=== PATIENT | female | born 1970 | race Caucasian/White ===

== ENCOUNTER 2021-09-25 00:14 | Day surgery (SDC) | payer BC, SELFPAY ==
[2021-09-14 10:48] VITALS: BMI 22.6
--- NOTE | 2021-09-25 10:55 | PM.HPGS ---
History of Present Illness History of Present Illness Consent: Risks, benefits, and alternatives have been discussed and questions answered. Patient agrees to proceed with procedure. Chief complaint: abdominal pain, melena Narrative: Virginie Fields is a 51 year old female who developed involuntary contractions in her upper torso.? She called her primary care provider who told her to start taking magnesium, 4000 mg per day.? The involuntary movements stopped, however she then developed severe abdominal cramping with diarrhea.? Within a day or 2 she began passing blood and has actually passed blood clots as well.? She was not having a fever, chills, but did have vomiting the 1st day or 2 after taking magnesium.? She stopped taking magnesium on the 4th day.? She still feels uncomfortable throughout her abdomen and is seeing some blood but much less. Review of Systems Review of Systems: All systems reviewed & are unremarkable except as noted in HPI and below PMFSH Past Medical History Medical History Allergies Family History Family History Father Alcoholism Heart disease Son Asthma Depression Daughter Cancer Mother Cerebrovascular accident Grandparent Heart disease Social History Social History Smoking status: Never smoker Alcohol intake: current Drinks per week: 1 Alcohol use details: social Substance use: never Substance use type: does not use Living arrangements: alone Spiritual care concerns: No Meds Home Medications and Allergies Home Medications Medication Instructions Recorded Confirmed Type bupropion HCl 100 mg tablet 150 mg PO DAILY 09/11/21 09/14/21 History conjugated estrogens 0.3 mg tablet 0.3 mg PO Q5-6M 09/11/21 09/14/21 History lisdexamfetamine 60 mg capsule 60 mg PO DAILY 09/11/21 09/14/21 History (Vyvanse) qgkxkmmnw-drvvprkwj-idyqfkbe-scop 1 - 2 tablet PO .q8 PRN cramping 09/11/21 09/14/21 Rx 16.2 mg-0.1037 mg-0.0194 mg tablet and loose stools #20 tabs () progesterone micronized 200 mg 200 mg PO QHS 09/11/21 09/14/21 History capsule testosterone 100 mg implant pellet 150 mg subcut .Q5-6 months 09/11/21 09/14/21 History Allergies Allergy/AdvReac Type Severity Reaction Status Date / Time shellfish derived Allergy Anaphylaxis Verified 09/14/21 11:07 Sulfa (Sulfonamide Allergy Anaphylaxis Verified 09/14/21 11:07 Antibiotics) Exam Resp: Auscultation: clear to auscultation bilaterally Cardio: Rate: regular rate Rhythm: regular rhythm GI: GI Palp: Yes Soft to palpation and No Tenderness to palpation present (GI) Assessment and Plan Assessment and plan (1) Blood in stool: Code(s): K92.1 - Melena Status: Acute Assessment and Plan: Colonoscopy with possible biopsy or polypectomy or cautery or injection of substances.
[2021-09-25] MEDS: LACTATED RINGERS 1,000 ML 150 ML IV CONT (11:40)
[2021-09-25 11:42] VITALS: BP 120/65; PULSE 45; RESP 18; TEMP 37.1; O2SAT 100; BMI 21.4
--- NOTE | 2021-09-25 11:48 | P.PNAN_ITS ---
Anes - Initial Pre Proc Eval Procedure: Operation Date: 09/25/21 12:30 Proposed Procedures p Colonoscopy - Brian Hobbs MD Date/Time: 09/25/21 11:48 Surgeon: Brian Hobbs MD Pre Op Diagnosis: abdominal pain, melena Patient Data Age: 51 Gender: F Height: 1.6 m Weight: 54.9 kg Last Vital Signs Temp 98.7 F 09/25/21 11:42 Pulse 45 L 09/25/21 11:42 Resp 18 09/25/21 11:42 BP 120/65 09/25/21 11:42 Pulse Ox 100 09/25/21 11:42 O2 Del Method Room Air 09/25/21 11:42 Allergies Allergy/AdvReac Type Severity Reaction Status Date / Time shellfish derived Allergy Anaphylaxis Verified 09/14/21 11:07 Sulfa (Sulfonamide Allergy Anaphylaxis Verified 09/14/21 11:07 Antibiotics) Home Medications Medication Instructions Recorded Confirmed Type bupropion HCl 100 mg tablet 150 mg PO DAILY 09/11/21 09/25/21 History conjugated estrogens 0.3 mg tablet 0.3 mg PO Q5-6M 09/11/21 09/25/21 History lisdexamfetamine 60 mg capsule 60 mg PO DAILY 09/11/21 09/25/21 History (Vyvanse) hrymnwlif-jdwqsinfk-zptxzsbg-scop 1 - 2 tablet PO .q8 PRN cramping 09/11/21 09/14/21 Rx 16.2 mg-0.1037 mg-0.0194 mg tablet and loose stools #20 tabs () progesterone micronized 200 mg 200 mg PO QHS 09/11/21 09/25/21 History capsule testosterone 100 mg implant pellet 150 mg subcut .Q5-6 months 09/11/21 09/25/21 History Patient hx anesthesia problems: none Family hx anesthesia problems: none Results Review: All pre-operative results and documents have been reviewed as part of the pre-operative evaluation. [facility] Past Medical History Medical History Allergies Family History Family History Father Alcoholism Heart disease Son Asthma Depression Daughter Cancer Mother Cerebrovascular accident Grandparent Heart disease Social History Social History Smoking status: Never smoker Alcohol intake: current Drinks per week: 1 Alcohol use details: social Substance use: never Substance use type: does not use Living arrangements: alone Spiritual care concerns: No Anes - Eval Final PreProcedure Day of Procedure 09/25/21 11:48 Patient weight: normal Heart: bradycardia Lungs: clear to auscultation Airway: Mallampati scale class II Neurological: alert and oriented Last oral intake: >/= 8 hours ASA classification: II Emergent: no Anesthetic plan: proceed Anesthesia type and monitoring: general GIVS and standard monitoring Results Review: All pre-operative results and documents have been reviewed as part of the pre- operative evaluation. Informed Consent: The patient's anesthetic plan and its attendant risks and benefits were discussed with the patient/family/POA. Questions were solicited and answers provided to the satisfaction of the patient/family/POA.
[2021-09-25 12:16] VITALS: BP 106/69; PULSE 73; RESP 18; O2SAT 100
[2021-09-25 12:26] VITALS: BP 103/71; PULSE 69; RESP 22; O2SAT 100
[2021-09-25 12:36] VITALS: BP 105/74; PULSE 65; RESP 20; O2SAT 100
== END 2021-09-25 12:50 | disposition home or self-care (01) ==
PROVIDERS: PCP Internal Medicine; Visit Provider Internal Medicine Gastroenterology
PROC: 0DJD8ZZ Inspection of Lower Intestinal Tract, Via Natural or Artificial Opening Endoscopic (ICD-10-PCS; CPT 45378; principal; 2021-09-25 12:30)
DX: K92.1 Melena (principal); K57.30 Diverticulosis of large intestine without perforation or abscess without bleeding; K62.1 Rectal polyp
CPT/HCPCS: 45380; 45381; 88305; J2704; J7120

== ENCOUNTER 2021-10-12 17:28 | Emergency (ER) | payer BC, SELFPAY ==
--- NOTE | ~2021-10-12 | CT_ITS ---
EXAMINATION: CT abdomen pelvis w con DATE: 10/12/2021 18:38 INDICATION: Abdominal pain with rectal bleeding TECHNIQUE: Computed tomography (CT) of the abdomen and pelvis was performed with 100 mL Omnipaque-350 intravenous contrast. Automated exposure control and iterative reconstruction technique were employe d. The dose-length product was 214.28 mGy-cm. COMPARISON: None FINDINGS: Visualized lower lungs are clear. Heart size is normal. No pericardial or pleural effusion. The later al breast implants. Liver, gallbladder, spleen, pancreas, bilateral adrenal glands are normal. Couple 2 mm smaller stones in the right kidney and one in the mid left kidney. No hydronephrosis. Normal ap pendix. Short segment of wall thickening at the rectosigmoid junction without significant surrounding inflammatory stranding which raises concern for malignancy. Moderate to large amount stool scattered throughout the more proximal colon. No dilated bowel to suggest obstruction. Bladder is normal. The uterus is not identified and has likely been surgically resected. No free intraperitoneal gas or flui d No pathologically enlarged abdominal or pelvic lymphadenopathy. Moderate thoracic and lumbar spondy losis. Normal variant L2 limbus vertebra with unfused apophyseal center at the anterosuperior are not ed margin of the vertebral body. IMPRESSION: 1. Short segment of wall thickening at the rectosigmoid junction which raises concern for colon cance r. Differential would diverticulitis or focal colitis. Recommend colonoscopy for further evaluation. 2. Nonobstructing nephrolithiasis. Reviewed, dictated and finalized at location [facility]. IMPRESSION: 1. Short segment of wall thickening at the rectosigmoid junction which raises c oncern for colon cancer. Differential would diverticulitis or focal colitis. Re commend colonoscopy for further evaluation. 2. Nonobstructing nephrolithiasis.
[2021-10-12 17:46] VITALS: BP 138/82; PULSE 81; RESP 17; TEMP 36.6; O2SAT 100
[2021-10-12 17:51] LABS: Basophils Percent Auto 0.6 % (0.2-1.2); Eosinophils Percent Auto 0.6 % (0-4.4); Hematocrit 38.4 % (37.0-47.0); Hemoglobin 12.9 g/dL (12.0-15.0); Lymphocytes Absolute Auto 1.68 K/mm3 (0.9-3.2); Lymphocytes Percent Auto 23.6 % (18.3-44.2); Mean Corpuscular HGB Conc 33.6 g/dl (32-36); Mean Corpuscular Hemoglobin 33.5 pg (26-34); Mean Corpuscular Volume 99.7 fl (80-100); Mean Platelet Volume 10.7 fl (7.4-10.4); Monocytes Absolute Auto 0.5 K/mm3 (0.1-0.6); Monocytes Percent Auto 6.8 % (2.6-8.5); Neutrophils Absolute Auto 4.9 K/mm3 (1.3-6.7); Neutrophils Percent Auto 68.4 % (45.5-73.1); Platelet Count Result 207 k/mm3 (150-375); Red Blood Count 3.85 M/mm3 (4.2-5.4); Red Cell Distribution Width 12.4 % (11.5-14.5); White Blood Count 7.1 K/mm3 (4.5-10.0)
[2021-10-12 18:01] LABS: Alanine Aminotransferase 23 U/L (6-35); Albumin Level 4.4 g/dL (3.5-5.1); Alkaline Phosphatase 51 U/L (38-126); Anion Gap 7 mmol/L (8-16); Aspartate Amino Transferase 33 U/L (14-36); Bilirubin,Total 0.4 mg/dL (0.2-1.3); Blood Urea Nitrogen 14 mg/dL (7-17); Calcium 8.8 mg/dL (8.4-10.2); Carbon Dioxide 28 mmol/L (22-30); Chloride 102 mmol/L (98-107); Estimated CRCL calculation 56 ml/min; Estimated Glomerular Filt Rate > 60; Glucose 97 mg/dL (65-110); Potassium 4.4 mmol/L (3.4-5.0); Prothrombin Time 12.8 Seconds (11.1-14.7); Sodium 137 mmol/L (137-145)
[2021-10-12 18:02] LABS: Partial Thromboplastin Time 24.2 SECONDS (22.3-36.8)
[2021-10-12] MEDS: SODIUM CHLORIDE 0.9% IV 1,000 ML 999 ML IV CONT (18:02)
[2021-10-12 18:17] LABS: Lipase 222 U/L (23-300)
--- NOTE | 2021-10-12 18:26 | ED.GIBLEED ---
HPI - GI Bleed General Chief complaint: GI Bleed Stated complaint: RECTAL BLEEDING Time Seen by Provider: 10/12/21 17:38 Source: patient Mode of arrival: ambulatory Limitations: no limitations History of Present Illness HPI Narrative: 51 years old white female presented to the ED by private car from home complaining of rectal bleeding and upper abdominal cramps started months ago, had recent colonoscopy, which showed superficial sigmoid ulceration per Dr. Pink report. Patient was advised to come to the emergency room to get CT scan of the abdomen today to make sure nothing else unusual. She denies any fever, chills, nausea, vomiting, diarrhea, constipation. Related Data Home Medications Medication Instructions Recorded Confirmed bupropion HCl 100 mg tablet 150 mg PO DAILY 09/11/21 09/25/21 conjugated estrogens 0.3 mg tablet 0.3 mg PO Q5-6M 09/11/21 09/25/21 lisdexamfetamine 60 mg capsule 60 mg PO DAILY 09/11/21 09/25/21 (Vyvanse) progesterone micronized 200 mg 200 mg PO QHS 09/11/21 09/25/21 capsule testosterone 100 mg implant pellet 150 mg subcut .Q5-6 months 09/11/21 09/25/21 Allergies Allergy/AdvReac Type Severity Reaction Status Date / Time shellfish derived Allergy Anaphylaxis Verified 09/14/21 11:07 Sulfa (Sulfonamide Allergy Anaphylaxis Verified 09/14/21 11:07 Antibiotics) Review of Systems Review of Systems: All systems reviewed & are unremarkable except as noted in HPI and below PMFSH Past Medical History Medical History Allergies Family History Family History Father Alcoholism Heart disease Son Asthma Depression Daughter Cancer Mother Cerebrovascular accident Grandparent Heart disease Social History Social History Smoking status: Never smoker Alcohol intake: current Drinks per week: 1 Alcohol use details: social Substance use: never Substance use type: does not use Spiritual care concerns: No Exam Narrative: General appearance: Well-developed, well-nourished Skin: Normal color Head: Normocephalic, nontraumatic Eyes: Clear conjunctiva ENT: Oropharynx normal, ears normal, nose normal Neck: Supple, nontender Chest and respiratory: Airway patent, no respiratory distress, no accessory muscle use Heart: Regular rate/rhythm Abdomen: Soft, size diffuse tenderness, no guarding or rebound, no organomegaly, quiet bowel sounds rectal exam showed maroon-colored stool, guaiac positive, Vascular: Normal peripheral pulses, normal capillary refill. Musculoskeletal: Normal range of motion, nontender back Neurologic: Alert and oriented ?3, SET UP PERSON is normal as tested, no gross motor deficit Course Consultations Consultation #1: DR PINK Discharge patient home, call me tomorrow for appointment Date: 10/12/21 Time: 19:03 Vital Signs Vital signs: Vital Signs Temperature 36.6 C 10/12/21 17:46 Pulse Rate 81 10/12/21 17:46 Respiratory Rate 17 10/12/21 17:46 Blood Pressure 138/82 10/12/21 17:46 Pulse Oximetry 100 10/12/21 17:46 Oxygen Delivery Room Air 10/12/21 17:46 Temperature 36.6 C 10/12/21 17:46 Pulse Rate 81 10/12/21 17:46 Respiratory Rate 17 10/12/21 17:46 Blood Pressure 138/82 10/12/21 17:46 Pulse Oximetry 100 10/12/21 17:46 Oxygen Delivery Room Air 10/12/21 17:46 MDM - GI Bleed Differential Diagnosis Differential diagnosis: Likely infectious diarrhea, gastritis, Upper gastrointestinal hemorrhage, Lower gastrointestinal hemorrhage and melena Lab Data Result diagrams: 10/12/21
[2021-10-12 18:29] LABS: Lactic Acid Reflex 0.8 mmol/L (0.7-2.0)
--- NOTE | 2021-10-12 18:34 | PC.NURSE ---
pt in CT at this time.
[2021-10-12 19:14] VITALS: BP 120/68; PULSE 76; RESP 18; O2SAT 96
== END 2021-10-12 19:16 | disposition home or self-care (01) ==
PROVIDERS: Emergency Provider Emergency Medicine; PCP Internal Medicine
DX: K62.5 Hemorrhage of anus and rectum (principal); K57.92 Diverticulitis of intestine, part unspecified, without perforation or abscess without bleeding; N20.0 Calculus of kidney
CPT/HCPCS: 36415; 74177; 80053; 83605; 83690; 85025; 85610; 85730; 86850; 86900; 86901; 96360; 99284; J7030; Q9967

== ENCOUNTER 2021-10-26 02:04 | Day surgery (SDC) | payer BC, SELFPAY ==
[2021-10-19 13:36] VITALS: BMI 20.9
--- NOTE | 2021-10-25 13:33 | PM.HPGS ---
History of Present Illness History of Present Illness Consent: Risks, benefits, and alternatives have been discussed and questions answered. Patient agrees to proceed with procedure. Chief complaint: Rectal Ulcerations Narrative: Virginie Fields is a 51 year old female Who has been found to have an ulceration in the sigmoid colon. Biopsies were negative. She however has had persistent bleeding. CT scan showed thickening in the area. after being seen in the emergency room she was given a prescription for levofloxacin and metronidazole and she feels that has helped. Review of Systems Review of Systems: All systems reviewed & are unremarkable except as noted in HPI and below PMFSH Past Medical History Medical History Allergies Family History Family History Father Alcoholism Heart disease Son Asthma Depression Daughter Cancer Mother Cerebrovascular accident Grandparent Heart disease Social History Social History Smoking status: Never smoker Alcohol intake: current Drinks per week: 1 Alcohol use details: social Substance use: never Substance use type: does not use Living arrangements: with family Spiritual care concerns: No Meds Home Medications and Allergies Home Medications Medication Instructions Recorded Confirmed Type bupropion HCl 100 mg tablet 150 mg PO DAILY 09/11/21 10/19/21 History conjugated estrogens 0.3 mg tablet 0.3 mg PO Q5-6M 09/11/21 10/19/21 History lisdexamfetamine 60 mg capsule 60 mg PO DAILY 09/11/21 10/19/21 History (Aly) zwcafurov-xgxhnskpp-opvaqfey-scop 1 - 2 tablet PO .q8 PRN cramping 09/11/21 10/19/21 Rx 16.2 mg-0.1037 mg-0.0194 mg tablet and loose stools #20 tabs () progesterone micronized 200 mg 200 mg PO QHS 09/11/21 10/19/21 History capsule testosterone 100 mg implant pellet 150 mg subcut .Q5-6 months 09/11/21 10/19/21 History levofloxacin 750 mg tablet 750 mg PO DAILY #7 tabs 10/12/21 10/19/21 Rx metronidazole 500 mg tablet 500 mg PO Q8H 7 days #21 tabs 10/12/21 10/19/21 Rx Allergies Allergy/AdvReac Type Severity Reaction Status Date / Time shellfish derived Allergy Anaphylaxis Verified 10/26/21 07:43 Sulfa (Sulfonamide Allergy Anaphylaxis Verified 10/26/21 07:43 Antibiotics) Exam Resp: Auscultation: clear to auscultation bilaterally Cardio: Rate: regular rate Rhythm: regular rhythm GI: GI Palp: Yes Soft to palpation and No Tenderness to palpation present (GI) Assessment and Plan Assessment and plan (1) Blood in stool: Code(s): K92.1 - Melena Status: Acute Assessment and Plan: Flexible sigmoidoscopy with possible biopsy or tattoo of lesion
[2021-10-26 07:46] VITALS: BP 90/58; PULSE 80; RESP 18; TEMP 36.6; O2SAT 100
--- NOTE | 2021-10-26 07:47 | SUR.PREOP ---
DR RIVERA MADE AWARE PT'S HEART RATE RUNS NORMAL (80s), THEN DROPS INTO 30s, THEN BACK TO HER NORMAL RATE. PT STATES NO CONCERNS OR COMPLAINTS. PT HAS BEEN FOLLOWING UP WITH OTHER DOCTORS OUTSIDE OF HOSPITAL PRIOR TO THIS PROCEDURE REGARDING THIS ISSUE. DR RIVERA TO SEE PT.
[2021-10-26] MEDS: LACTATED RINGERS 1,000 ML 150 ML IV CONT (07:59)
--- NOTE | 2021-10-26 08:15 | WPDANESEPPF ---
Anes - Initial Pre Proc Eval Procedure: Operation Date: 10/26/21 08:30 Proposed Procedures p Flexible Sigmoidoscopy - Brian Hobbs MD Date/Time: 10/26/21 08:15 Surgeon: Brian Hobbs MD Pre Op Diagnosis: Rectal Ulcerations Patient Data Age: 51 Gender: F Height: 1.6 m Weight: 54.4 kg Last Vital Signs Temp 97.8 F 10/26/21 07:46 Pulse 80 10/26/21 07:46 Resp 18 10/26/21 07:46 BP 90/58 L 10/26/21 07:46 Pulse Ox 100 10/26/21 07:46 O2 Del Method Room Air 10/26/21 07:46 Allergies Allergy/AdvReac Type Severity Reaction Status Date / Time shellfish derived Allergy Anaphylaxis Verified 10/26/21 07:43 Sulfa (Sulfonamide Allergy Anaphylaxis Verified 10/26/21 07:43 Antibiotics) Home Medications Medication Instructions Recorded Confirmed Type bupropion HCl 100 mg tablet 150 mg PO DAILY 09/11/21 10/19/21 History conjugated estrogens 0.3 mg tablet 0.3 mg PO Q5-6M 09/11/21 10/19/21 History lisdexamfetamine 60 mg capsule 60 mg PO DAILY 09/11/21 10/19/21 History (Vyvanse) gbfovgdvp-rzlqinrvs-bxaoqaaa-scop 1 - 2 tablet PO .q8 PRN cramping 09/11/21 10/19/21 Rx 16.2 mg-0.1037 mg-0.0194 mg tablet and loose stools #20 tabs () progesterone micronized 200 mg 200 mg PO QHS 09/11/21 10/19/21 History capsule testosterone 100 mg implant pellet 150 mg subcut .Q5-6 months 09/11/21 10/19/21 History Patient hx anesthesia problems: none Family hx anesthesia problems: none Results Review: All pre-operative results and documents have been reviewed as part of the pre-operative evaluation. [facility], [facility] Past Medical History Medical History Allergies Family History Family History Father Alcoholism Heart disease Son Asthma Depression Daughter Cancer Mother Cerebrovascular accident Grandparent Heart disease Social History Social History Smoking status: Never smoker Alcohol intake: current Drinks per week: 1 Alcohol use details: social Substance use: never Substance use type: does not use Living arrangements: with family Spiritual care concerns: No Anes - Eval Final PreProcedure Day of Procedure 10/26/21 08:15 Patient weight: normal Heart: regular rate and rhythm Lungs: clear to auscultation Airway: Mallampati scale class II Neurological: alert and oriented Last oral intake: >/= 8 hours ASA classification: II Emergent: no Anesthetic plan: proceed Anesthesia type and monitoring: general GIVS and standard monitoring Results Review: All pre-operative results and documents have been reviewed as part of the pre-operative evaluation. Informed Consent: The patient's anesthetic plan and its attendant risks and benefits were discussed with the patient/family/POA. Questions were solicited and answers provided to the satisfaction of the patient/family/POA.
[2021-10-26 08:48] VITALS: BP 97/57; PULSE 68; RESP 25; O2SAT 100
[2021-10-26 08:58] VITALS: BP 107/63; PULSE 69; RESP 24; O2SAT 100
[2021-10-26 09:08] VITALS: BP 94/69; PULSE 62; RESP 18; O2SAT 100
== END 2021-10-26 09:12 | disposition home or self-care (01) ==
PROVIDERS: PCP Internal Medicine; Visit Provider Internal Medicine Gastroenterology
PROC: 0DJD8ZZ Inspection of Lower Intestinal Tract, Via Natural or Artificial Opening Endoscopic (ICD-10-PCS; CPT 45330; principal; 2021-10-26 08:30)
DX: K63.3 Ulcer of intestine (principal); K92.1 Melena
CPT/HCPCS: 45331; 45335; 88305; J2704; J7120

== ENCOUNTER 2021-12-05 09:22 | Outpatient (CLI) | payer BC, SELFPAY ==
--- NOTE | 2021-12-04 12:59 | ECG_ITS ---
Rate [place] QRSd QT QTc P QRS T Severity 107 173 93 [phone] 45 50 57 No Severity Defined ..PEDIATRIC ECG INTERPRETATION SINUS TACHYCARDIA WITH OCCASIONAL VENTRICULAR PREMATURE COMPLEXES SEE SCANNED COPY FOR SIGNATURE MTDD
--- NOTE | 2021-12-12 15:03 | WPDHOLTEREM ---
Holter/Event Monitor Holter/Event Monitor Date of procedure: 12/05/21 Holter/Event Procedure: 48 Hr Holter Monitor Indications: Bradycardia Conclusion: 1. 48 hour holter monitor on 12/05/21. 2. Underlying rhythm is sinus rhythm. HR range 43-118 bpm; average HR 81 bpm. 3. There are 5 premature supraventricular complexes. No supraventricular tachycardia. 4. There are 13,029 premature ventricular complexes, 1,114 ventricular couplets, 1 ventricular triplet, 49,629 ventricular bigeminy and 13,019 ventricular trigeminy. No ventricular tachycardia. 5. No sinoatrial or atrioventricular blocks. No significant pauses greater than 2 seconds. 6. No symptoms available for correlation.
== END 2021-12-05 09:23 | disposition home or self-care (01) ==
LOC: ANHCARD 09:23
PROVIDERS: PCP Internal Medicine; Visit Provider Internal Medicine
DX: R00.1 Bradycardia, unspecified (principal); R42 Dizziness and giddiness
CPT/HCPCS: 93225; 93226

== ENCOUNTER 2023-02-06 19:08 | Outpatient (NON) | payer BC, SELFPAY ==
[2023-02-06 19:40] LABS: Appearance Urine Clear (Clear); Bacteria Urine None Seen /hpf; Bilirubin Urine Negative (Negative); Blood Urine Negative (Negative); Color Urine Yellow (Yellow); Glucose Urine UA Negative (Negative); Ketones Urine Trace mg/dL (Negative); Leukocyte Esterase Ur Trace LEU/UL (Negative); Nitrate Urine Negative (Negative); Non Pathogenic Casts 0-2; Protein Urine Negative (Negative); RBC Urine 0-2 /hpf (0-2); Specific Grav Ur 1.014 (1.001-1.035); Squamous Epithelial Cell Urine Occasional /hpf (Few); Urobilinogen Urine 0.2 mg/dL (<2.0); pH Urine 5.5 (5.0-9.0)
[2023-02-06 19:58] LABS: Add Urine Microscopic? YES
== END 2023-02-06 19:09 | disposition home or self-care (01) ==
LOC: ANHGOSHLAB 19:11
PROVIDERS: PCP Internal Medicine; Visit Provider Clinical Nurse Specialist
DX: R10.30 Lower abdominal pain, unspecified (principal)
CPT/HCPCS: 81001; 87077; 87086; 87186

== ENCOUNTER 2023-09-20 10:40 | Outpatient (CLI) | payer BC, SELFPAY ==
--- NOTE | ~2023-09-20 | MR_ITS ---
MRI of the left shoulder Technique: Axial proton-density fat-sat images, coronal proton density fat-sat and T2 fat-sat images, and sagittal T1-weighted and T2 fat-sat images were acquired. Clinical History: Pain Findings: There is mild AC joint degenerative change. Coracoclavicular, coracoacromial, and coracohum eral ligaments are intact. Supraspinatus and enhancement is tendons demonstrate mild tendinosis, but no partial or full-thicknes s tear. Subscapularis tendon is intact with mild to moderate tendinosis. Tendon of long head of the b iceps is intact. No definite labral tear seen. Inferior glenohumeral ligament is intact. No joint effusion or degenerative change of the glenohumera l joint. No fluid distention of the subacromial/subdeltoid bursa. No muscle atrophy or edema. Impression: Rotator cuff tendinosis without partial or full-thickness tear. No other significant abnormalities. Reviewed, dictated and finalized at [facility]. Impression: Rotator cuff tendinosis without partial or full-thickness tear. No other significant abnormalities.
== END 2023-09-20 10:41 ==
LOC: GOSHIMG 10:41
PROVIDERS: PCP Internal Medicine; Visit Provider Student in an Organized Health Care Education/Training Program
DX: M75.102 Unspecified rotator cuff tear or rupture of left shoulder, not specified as traumatic (principal)
CPT/HCPCS: 73221

== ENCOUNTER 2024-02-06 11:27 | Outpatient (CLI) | payer BC, SELFPAY ==
[2024-02-06 12:35] LABS: Basophils Percent Auto 0.9 % (0.2-1.2); Eosinophils Percent Auto 0.9 % (0-4.4); Hematocrit 39.5 % (37.0-47.0); Hemoglobin 13.2 g/dL (12.0-15.0); Immature Granulocyte Absolute 0.01 K/mm3 (0.00-0.031); Immature Granulocyte Percent A 0.2 % (0-0.5); Lymphocytes Absolute Auto 1.39 K/mm3 (0.9-3.2); Lymphocytes Percent Auto 30.3 % (18.3-44.2); Mean Corpuscular HGB Conc 33.4 g/dl (32-36); Mean Corpuscular Hemoglobin 33.3 pg (26-34); Mean Corpuscular Volume 99.7 fl (80-100); Mean Platelet Volume 11.1 fl (7.4-10.4); Monocytes Absolute Auto 0.5 K/mm3 (0.1-0.6); Monocytes Percent Auto 10.9 % (2.6-8.5); Neutrophils Absolute Auto 2.6 K/mm3 (1.3-6.7); Neutrophils Percent Auto 56.8 % (45.5-73.1); Platelet Count Result 194 k/mm3 (150-375); Red Blood Count 3.96 M/mm3 (4.2-5.4); Red Cell Distribution Width 12.5 % (11.5-14.5); White Blood Count 4.6 K/mm3 (4.5-10.0)
[2024-02-06 13:12] LABS: Alanine Aminotransferase 27 U/L (6-35); Albumin Level 4.3 g/dL (3.5-5.1); Alkaline Phosphatase 48 U/L (38-126); Anion Gap 4 mmol/L (4-12); Aspartate Amino Transferase 50 U/L (14-36); Bilirubin,Total 0.8 mg/dL (0.2-1.3); Blood Urea Nitrogen 16 mg/dL (7-17); Calcium 8.9 mg/dL (8.4-10.2); Carbon Dioxide 27 mmol/L (22-30); Chloride 105 mmol/L (98-107); Cholesterol 178 mg/dL (0-200); Estimated Glomerular Filt Rate > 60; Glucose 80 mg/dL (65-110); HDL Direct 56 mg/dL; Potassium 4.1 mmol/L (3.4-5.0); Sodium 136 mmol/L (137-145); Triglycerides 105 mg/dL (<150)
[2024-02-06 13:15] LABS: Vitamin D 25 Hydroxy 80.8 ng/mL
[2024-02-06 13:23] LABS: LDL Cholesterol Direct 85 mg/dL
== END 2024-02-06 11:28 | disposition home or self-care (01) ==
LOC: ANHGOSHLAB 11:30
PROVIDERS: PCP Internal Medicine; Visit Provider Nurse Practitioner
DX: Z13.29 Encounter for screening for other suspected endocrine disorder (principal); Z13.220 Encounter for screening for lipoid disorders; E55.9 Vitamin D deficiency, unspecified; E78.5 Hyperlipidemia, unspecified
CPT/HCPCS: 36415; 80053; 80061; 82306; 85025

== ENCOUNTER 2024-11-25 15:41 | Emergency (ER) | payer OTHER, SELFPAY ==
--- NOTE | 2024-11-25 15:44 | ED.GENADULT ---
HPI - General Adult General Chief complaint: Upper Respiratory Infection Stated complaint: sinus infection? Source: patient Mode of arrival: ambulatory Limitations: no limitations History of Present Illness HPI narrative: Pt is a 54 y/o female with c/o sinus infection. Pt reports congestion, sinus pressure onset < 2 days ago. Tx initiated ELECTRONIC SCALE TESTER includes intermittent use of Tylenol. No known exposure to COVID,FLU,STREP,PNA. No additional complaints. Related Data Home Medications ?Medication ?Instructions ?Recorded ?Confirmed ?Last Taken ?Type conjugated estrogens 0.3 mg tablet 0.3 mg PO Q5-6M 09/11/21 09/08/24 05/22/21 History progesterone micronized 200 mg 200 mg PO QHS 09/11/21 09/08/24 10/25/21 History capsule testosterone 100 mg implant pellet 150 mg subcut .Q5-6 months 09/11/21 09/08/24 05/19/21 History metoprolol succinate 25 mg 12.5 mg PO DAILY 04/03/22 09/08/24 Unknown History tablet,extended release 24 hr Allergies Allergy/AdvReac Type Severity Reaction Status Date / Time shellfish derived Allergy Anaphylaxis Verified 11/25/24 15:50 Sulfa (Sulfonamide Allergy Anaphylaxis Verified 11/25/24 15:50 Antibiotics) Review of Systems Review of Systems: CONSTITUTIONAL: Denies body aches, fever, chills, or sweats. EYES: Denies visual changes, redness, or discharge. ENT: Reports sinus congestion, sinus pressure. Denies rhinorrhea, sore throat, or otalgia. CARDIOVASCULAR: Denies chest pain, palpitations, or edema. RESPIRATORY: Denies cough or dyspnea. GASTROINTESTINAL: Denies abdominal pain, nausea, vomiting, or diarrhea. GENITOURINARY: Denies dysuria or hematuria. SKIN: Denies rash, itching, or wounds. MUSCULOSKELETAL: Denies back pain, joint pain, or myalgia. NEUROLOGIC: Denies headache, numbness, tingling, or weakness. PSYCH: Denies depression or anxiety. All systems reviewed & are unremarkable except as noted in HPI and below PMFSH Past Medical History Medical History GIST (gastrointestinal stroma tumor), malignant, colon Allergies Surgical History Surgical History History of neck surgery Family History Family History Father Alcoholism Heart disease Son Asthma Depression Daughter Cancer Mother Cerebrovascular accident Grandparent Heart disease Social History Social History Smoking status: Never smoker Alcohol intake: current Drinks per week: 1 Alcohol use details: social Substance use: never Substance use type: does not use Lack of Transportation: No Lack of Food: Never True Current Housing: I Have Housing Concerned About Future Housing: No Difficulty Paying Gas/Electric Bills: No Difficulty Paying for Meds: No Currently Unemployed: No Education: Bachelor's Degree Difficulty w/ Childcare or Family Care: No Living arrangements: with family Spiritual care concerns: No Exam Narrative: GENERAL: Well-appearing, well-nourished, and in no acute distress. HEAD: Normocephalic, atraumatic. EYES: EOMI. No redness or drainage. Conjunctivae normal. ENT: Mucous membranes pink and moist. Nares clear. No rhinorrhea. TMs normal bilaterally. Throat normal. Uvula midline. Sinuses are nonTTP NECK: Normal AROM. Supple. No lymphadenopathy. CHEST: No respiratory distress. Clear to auscultation. HEART: Regular rate and rhythm. No murmur appreciated. Normal peripheral pulses. EXTREMITIES: Normal range of motion. SKIN: Warm, dry, no rash. Capillary refill normal. Normal skin turgor. NEURO: No focal deficits. Alert and oriented x3. Gait steady. PSYCH: Normal affect. No signs of depression or anxiety. Course Course Level of Care: Express Care Visit Vital Signs Vital signs: Vital Signs Temperature 98.6 F 11/25/24 15:50 Pulse Rate 65 11/25/24 15:50 Respiratory Rate 16 11/25/24 15:50 Blood Pressure 103/78 11/25/24 15:50 Pulse Oximetry 100 11/25/24 15:50 Temperature 98.6 F 11/25/24 15:50 Pulse Rate 65 11/25/24 15:50 Respiratory Rate 16 11/25/24 15:50 Blood Pressure 103/78 11/25/24 15:50 Pulse Oximetry 100 11/25/24 15:50 Medical Decision Making MDM Narrative Medical decision making narrative: Pt traveling to [place] on Saturday. I gave her a printed Rx for Augmentin with strict instructions to NOT take this medication unless her symptoms become worse/NO improvement by Saturday. Vital Signs Vital Signs: Vital Signs Temperature 98.6 F 11/25/24 15:50 Pulse Rate 65 11/25/24 15:50 Respiratory Rate 16 11/25/24 15:50 Blood Pressure 103/78 11/25/24 15:50 Pulse Oximetry 100 11/25/24 15:50 Temperature 98.6 F 11/25/24 15:50 Pulse Rate 65 11/25/24 15:50 Respiratory Rate 16 11/25/24 15:50 Blood Pressure 103/78 11/25/24 15:50 Pulse Oximetry 100 11/25/24 15:50 Lab Data Lab results reviewed: Yes I reviewed the patient's lab results. Labs: Lab Results 11/25/24 Range/Units 15:58 POC Influenza A Ag Negative (Negative) POC Influenza B Ag Negative (Negative) POC SARS CoV-2 Ag Negative (Negative) Discharge Plan Discharge Clinical Impression: Sinus congestion Patient Disposition: Home Condition: Stable Instructions: Antibiotic Form, Cold Symptoms (ED) Additional Instructions: Go straight to ER should your symptoms become worse or should any new symptoms develop Patient Language: Mongolian Prescriptions: New amoxicillin-pot clavulanate 875-125 mg tablet 1 tablet PO Q12H 7 Days Qty: 14 0RF No Action metoprolol succinate 25 mg tablet extended release 24 hr 12.5 mg PO DAILY trazodone 100 mg tablet 100 mg PO QHS PRN (Reason: insomnia) Qty: 90 3RF progesterone micronized 200 mg capsule 200 mg PO QHS testosterone 100 mg pellet 150 mg subcut .Q5-6 months Rx Instructions: as a single dose conjugated estrogens 0.3 mg tablet 0.3 mg PO Q5-6M cyclobenzaprine 5 mg tablet 5 - 10 mg PO DAILY PRN (Reason: muscle spasm) Qty: 30 0RF bupropion HCl 100 mg tablet 150 mg PO DAILY Qty: 140 1RF lisdexamfetamine [Vyvanse] 60 mg capsule 60 mg PO DAILY Qty: 30 0RF Follow-up/Referrals: Ace Castellano DO [Primary Care Provider, Internal Medicine] - 11/26/24 Time of Disposition: 16:33
[2024-11-25 15:50] VITALS: BP 103/78; PULSE 65; RESP 16; TEMP 37; O2SAT 100
[2024-11-25 16:21] LABS: EDCOVIDSCREEN Negative (Negative); EDINFLUASCREEN Negative (Negative); EDINFLUBSCREEN Negative (Negative)
== END 2024-11-25 16:42 | disposition home or self-care (01) ==
PROVIDERS: Emergency Provider Registered Nurse; PCP Internal Medicine
DX: J34.89 Other specified disorders of nose and nasal sinuses (principal); Z20.822 Contact with and (suspected) exposure to COVID-19; Z85.09 Personal history of malignant neoplasm of other digestive organs
CPT/HCPCS: 87426; 87804; 99213; G0463